=== PATIENT | male | born 1960 | race Two or more races ===

== ENCOUNTER 2024-10-28 03:00 | Emergency (ER) | payer OTHER ==
[~2024-10-28] VITALS: Ht 170.2 cm; Wt 85.7 kg
[2024-10-28] MEDS ORDERED: SYNTHROID150 MCG PO (03:17)
[2024-10-28] MEDS ORDERED: ZESTRIL2.5 MG PO (03:17)
[2024-10-28] MEDS ORDERED: CHILDREN'S ASPI81 MG PO (03:18)
[2024-10-28] MEDS ORDERED: LIPITOR40 M1 PO (03:18)
[2024-10-28] MEDS ORDERED: FAMOtidine 10 MG/ML (4ML VIAL) IV PUSH STA (03:44)
[2024-10-28] MEDS ORDERED: EPINEPHRINE HCL/PF 1 MG/ML AMPUL SUBCUTANEO STA (03:44)
[2024-10-28] MEDS ORDERED: DIPHENHYDRAMINE HCL 50 MG/ML VIAL 1ML IV STA (03:45)
== END 2024-10-28 06:33 | disposition home or self-care (01) ==
LOC: ER 03:03
DX: L50.0 Allergic urticaria (principal); Z88.0 Allergy status to penicillin; Z88.8 Allergy status to other drugs, medicaments and biological substances